=== PATIENT | male | born 1965 | race Caucasian/White ===

== ENCOUNTER → 2019-10-17 08:18 | Outpatient (CLI) | payer BC ==
[2014-12-18 07:36] VITALS: BMI 30.8
[~2019-10-17 08:18] MED LIST: BAYER CHEWABLE81 MG PO; PLAVIX75 MG PO; PRINIVIL20 MG PO
== END | disposition home or self-care (01) ==
LOC: D.HCCARDIO 08:18
PROVIDERS: ATTEND Internal Medicine Cardiovascular Disease
DX: I25.10 Atherosclerotic heart disease of native coronary artery without angina pectoris (principal)

== ENCOUNTER 2019-10-31 08:04 | Day surgery (SDC) | payer BC ==
[~2019-10-31] VITALS: Ht 165.1 cm; Wt 83.5 kg
--- NOTE | ~2019-10-31 | HEMODYNAMI ---
PATIENT:ABDI LINDA MEDICAL RECORD: [id number] : 61 LOCATION:DCodiCAT ADMISSION DATE: 10/31/19 Generatedon:10/31/201910:54 Patient name: ABDI LINDA Patient #: [id number] : 1965 Date of study: 10/31/2019 Page: Of Hemodynamic Procedure Report Patient Data Patient Demographics Procedure consent was obtained First Name: ABDI Gender: Male Last Name: MADDI : 1965 Middle Initial: JM Age: 54 year(s) Patient #: [id number] Race: SSN: [id number] Additional ID: [id number] Contact details Address: [address] [place] [address] State: [place] City: [facility] Zip code: [address] Past Medical History Allergies Allergen Reaction Date Comments Reported Other allergy 12/18/2014 Nickel Admission Admission Data Admission Date: 10/31/2019 Admission Time: 8:04 Arrival Date: 10/31/2019 Arrival Time: 0:00 Admit Source: Other Height (in.): 64.96 BSA: 1.9 (m2) Height (cm.): 165 BMI: 30.49 (kg/m2) Weight (lbs.): 182.98 Weight (kg.): 83 Lab Results Lab Result Date: 10/31/2019 Lab Result Time: 0:00 Biochemistry Name Units Result Min Max BUN mg/dl 18 --(---*)-- 7 18 Creatinine mg/dl 0.9 --(-*--)-- 0.6 1.3 eGFR ml/min 90 --(*---)-- 90 120 NONAFRICAN CBC Name Units Result Min Max Hemoglobin g/dl 15.3 --(-*--)-- 13.5 17.5 Procedure Procedure Types Cath Procedure Diagnostic Procedure LHC LHC w/Coronaries Procedure Description Procedure Date Procedure Date: 10/31/2019 Procedure Start Time: 10:44 Procedure End Time: 10:52 Procedure Staff Name Function Frandy Ibanez MD Performing Physician Domonique Noble RT Reliability Manager Siobhan Carter RT Monitor Charlene Arce RN Nurse Saida Mixon RT Scrub Procedure Data Cath Procedure Fluoroscopy Diagnostic fluoroscopy Total fluoroscopy Time: 1.1 time: 1.1 min min Diagnostic fluoroscopy Total fluoroscopy dose: 547 dose: 547 mGy mGy Contrast Material Contrast Material Type Amount (ml) Isovue 300 60 Entry Location Entry Primary Successful Side Size Upsize Upsize Entry Closure [place] ccessful Closure Location (Fr) 1 (Fr) 2 (Fr) Remarks Device Remarks Radial Right 6 Fr Mechanical artery Short Compression Estimated blood loss: 10 ml Diagnostic catheters Device Type Used For End Catheter Placement DIAGNOSTIC Leverett 110cm 5 Fr catheter ([id number]) Procedure Complications No complications Procedure Medications Medication Administration Route Dosage 0.9% NaCl I.V. 100 ml/hr Oxygen etCO2 Nasal cannula 2 l/min Lidocaine 2% added to field 20 Heparin Flush Bag added to field 2 bags (1000units/500ml NS) Radial Cocktail added to field 1 syringe (Verapamil 2mg/Nitro 400mcg/Heparin 1500units) Versed I.V. 2 mg Fentanyl I.V. 50 mcg Hemodynamics Rest BSA: 1.9 (m2) HGB: 15.3 (g/dl) O2 Consumption: Estimated: 235.38 (ml/min) O2 Con sumption indexed: Estimated:123.88 (ml/min/m) Heart Rate: 85 (bpm) Pressure Samples Time Site Value (mmHg) Purpose Heart Use Rate(bpm) 10:47 LV 66/14,66 Snapshot 87 10:47 AO 81/60(70) Pullback 80 10:47 LV 76/0,4 Pullback 80 Gradients Valve Time Site 1 Site 2 Mean SEP/DFP Peak To Heart Use (mmHg) (sec/min) Peak Rate (mmHg) (bpm) Aortic 10:47 LV AO 0 7 0 80 76/0,4 81/60(70) Calculations Valve P-P Mean Valve Index Valve Source Name Gradient Area Flow (cm2) Aortic 0 0 0 0 Snapshots Pre Cath Intra NCS Post Cath Vital Signs Time Heart Resp SPO2 etCO2 NIBP (mmHg) Rhythm Pain Sedation Rate (ipm) (%) (mmHg) Status Level (bpm) 10:26:06 72 24 97 35.6 138/90(102) NSR 0 (11) 10(A) , No pain 10:30:20 77 20 96 36.8 125/92(101) NSR 0 (11) 10(A) , No pain 10:34:27 76 18 95 30.8 132/90(101) NSR 0 (11) 10(A) , No pain 10:38:41 80 16 97 39.8 130/83(111) NSR 0 (11) 10(A) , No pain 10:42:53 73 14 98 36.1 119/86(101) NSR 0 (11) 10(A) , No pain 10:47:03 76 14 95 38.3 123/80(89) NSR 0 (11) 10(A) , No pain 10:51:17 75 13 92 38.4 118/79(97) NSR 0 (11) 10(A) , No pain Medications Time Medication Route Dose Verified Delivered Reason Notes E ffectiveness by by 10:26:39 0.9% NaCl I.V. 100 Frandy Watsona used for ml/hr Shamar Claude procedure MD FIGUEROA 10:26:51 Oxygen etCO2 2 l/min Frandy Watsona used for Nasal Shamar Claude procedure cannula RN 10:26:58 Lidocaine 2% added 20ml Frandy Wise for local to vial Shamar Shamar anesthetic field MD VICTORIA 10:27:01 Heparin Flush added 2 bags Frandy Wise used for Bag to Shamar Shamar procedure (1000units/500ml field MD VICTORIA NS) 10:27:06 Radial Cocktail added 1 Frandy Wise used for (Verapamil to syringe Shamar Shamar procedure 2mg/Nitro field MD VICTORIA 400mcg/Heparin 1500units) 10:43:17 Versed I.V. 2 mg Frandy Charlene for ShamarParag Arce sedation RN 10:43:23 Fentanyl I.V. 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 10:24:25 Domonique Noble RT(R) sent for patient. Start room use. 10:24:40 Time tracking: Regular hours (M-F 7:00 - 5:00) 10:24:46 Plan of Care:Hemodynamics will remain stable., Cardiac rhythm will remain stable., Comfort level will be maintained., Respiratory function will remain adequate., Patient/ family verbilizes understanding of procedure., Procedure tolerated without complication., Recovers from procedure without complications.. 10:24:57 Patient received from Pre/Post Procedure Room to CCL 2 Alert and oriented. Tansferred to table in Supine position. 10:25:01 Signed procedure consent form obtained from patient. 10:25:03 Warm blankets applied, and naun hugger turned on for patient comfort. 10:25:03 Correct patient and procedure confirmed by team. 10:25:05 ECG and BP/O2 sat monitors applied to patient. 10:25:06 Vital chart was started 10:25:08 Baseline sample Acquired. 10:25:10 Baseline sample Acquired. 10:25:14 Full Disclosure recording started 10:26:39 0.9% NaCl 100 ml/hr I.V. was administered by Charlene Arce RN; used for procedure; Verbal order read back and verified. 10:26:51 Oxygen 2 l/min etCO2 Nasal cannula was administered by Charlene Arce RN; used for procedure; Verbal order read back and verified. 10:26:58 Lidocaine 2% 20ml vial added to field was administered by Frandy Ibanez MD; for local anesthetic; Verbal order read back and verified. 10:27:01 Heparin Flush Bag (1000units/500ml NS) 2 bags added to field was administered by Frandy Ibanez MD; used for procedure; Verbal order read back and verified. 10:27:06 Radial Cocktail (Verapamil 2mg/Nitro 400mcg/Heparin 1500units) 1 syringe added to field was administered by Frandy Ibanez MD; used for procedure; Verbal order read back and verified. 10:29:20 H&P Date Dictated: 10/17/2019 Within 30 days and on chart., H&P Addendum completed by physician on day of procedure. (MUST COMPLETE FOR ALL OUTPATIENTS). 10:29:22 Pre-procedure instructions explained to patient. 10:29:24 Family in patients room. 10:29:26 Patient NPO since Midnight. 10:29:49 Is the patient allergic to Iodine/contrast media? No. 10::51 Was the patient premedicated? Yes 10::53 Is patient on blood thinner?No 10:29:57 Patient diabetic? No. 10:30:13 Previous problem with sedation/anesthesia? No ? 10:30:19 Snore? No 10:30:23 Sleep apnea? No 10:30:32 Airway obstruction? Yes COPD 10:30:39 Dentures? N/A ? 10:30:43 Patient pain scale 0/10 ?. 10:30:48 IV patent on arrival in left forearm with 0.9% NaCl at [facility]. 10:31:00 Baseline sample Acquired. ::21 Lab Result : BUN 18 mg/dl :: Lab Result : Creatinine 0.9 mg/dl :: Lab Result : eGFR NONAFRICAN 90 ml/min :: Lab Result : Hemoglobin 15.3 g/dl 10:: Lab results completed and on chart. 10:32:35 Stress Test: yes; abnormal inferior,apical 10:32:40 Right Radial & Right Groin area was prepped with chlora-prep and draped in sterile fashion 10:32:42 Alarms reviewed by RCodi Aldana. 10:32:42 Sharps counted by scrub and verified by R.N. 10:40:04 Arrival Date: 10/31/2019 12:00:00 AM 10:40:15 Patient Height : 64.96 inches 10:40:19 Patient Weight : 182.98 lbs 10:40:56 Zero performed for pressure channel P1 10:42:26 Physician arrived 10:42:27 --------ALL STOP TIME OUT------ 10:42:28 Final Timeout: patient, procedure, and site verified with staff and physician. All members of the team are in agreement. 10:42:32 Right Radial & Right Groin site verified by team. 10:42:36 Fire Safety Assessment: A--An alcohol-based skin anteseptic being used preoperatively., C--Open oxygen or nitrous oxide is being used., D--An ESU, laser, or fiber-optic light is being used. 10:42:40 Physical assessment completed. ASA score P 2 - A patient with mild systemic disease as per Frandy Ibanez MD. 10:42:47 1) 90+ Normal kidney functon but urine findings or structural abnormalities or genetic trait point to kidney disease. 10:42:51 Maximum allowable contrast dose (3.7 X eGFR X 0.75)249 ml. 10:42:56 Sedation plan: IV Moderate Sedation Medication:Versed, Fentanyl 10:43:03 Use device set Radial Dx or PCI 10:43:04 ACIST Syringe (73057) opened to sterile field. 10:43:04 Medline Cath Pack ([id number]) opened to sterile field. 10:43:05 Bag Decanter (2002S) opened to sterile field. 10:43:05 ACIST Hand Control (60720) opened to sterile field. 10:43:05 ACIST Manifold (24287) opened to sterile field. 10:43:06 Tegaderm 4 x 4 (1626W) opened to sterile field. 10:43:07 MBrace Wrist Support ([id number]) opened to sterile field. 10:43:10 EMERALD Guide Wire (492-138) opened to sterile field. 10:43:10 SHEATH 6FR RAIN ([id number]) opened to sterile field. 10:43:15 Procedure started. 10:43:17 Versed 2 mg I.V. was administered by Charlene Arce RN; for sedation; Verbal order read back and verified. 10:43:23 Fentanyl 50 mcg I.V. was administered by Charlene Arce RN; for sedation; Verbal order read back and verified. 10:44:34 Local anesthetic to right radial artery with Lidocaine 2% by Frandy Ibanez MD.INITIAL ACCESS ONLY 10:45:51 A 6 Fr Short sheath was inserted into the Right Radial artery 10:46:02 A DIAGNOSTIC Leverett 110cm 5 Fr catheter ([id number]) was advanced over the wire and used for . 10:47:25 LV angiography performed. 10:47:44 EF : 55 % 10:48:31 LCA angiography performed. 10:49:19 RCA angiography performed. 10:50:20 Catheter removed. 10:50:29 Sheath removed intact; hemostasis achieved with Mechanical Compression to the Right Radial artery. 10:50:35 Procedure ended.(Physican Out) 10:51:11 Fluoroscopy time 01.10 minutes. 10:51:15 Fluoroscopy dose: 547 mGy 10:51:15 Flurop Dose total: 547 10:51:20 Dose Area Product 20526 mGy/cm. 10:51:24 Contrast amount:Isovue 300 60ml. 10:51:26 Maximum allowable dose exceeded? No. 10:51:27 Sharps counted by scrub and verified by R.N. 10:51:28 Insertion/operative site no bleeding no hematoma. 10:51:53 Post right radial artery:stable 10:51:55 Post Procedure Pulses reassessed and unchanged 10:52:00 Post-procedure physical assessment completed. ASA score P 2 - A patient with mild systemic disease as per Fradny Ibanez MD. 10:52:02 Post procedure rhythm: sinus rhythm 10:52:06 Estimated blood loss: 10 ml 10:52:08 Post procedure instruction explained to patient.Patient verbalizes understanding. 10:52:19 Procedure and supply charges have been captured, reviewed, submitted and are correct. 10:52:39 Procedure Complication : No complications 10:52:41 Vital chart was stopped 10:52:46 [facility] Findings: mild to moderate CAD (<70%) 10:52:50 Operative report dictated upon procedure completion. 10:52:51 See physician's report for complete and final results. 10:52:52 Report given to Pre/Post Procedure Room. 10:52:54 Patient transfered to Pre/Post Procedure Room with Stretcher. 10:52:56 Procedure ended. 10:52:56 Full Disclosure recording stopped Device Usage Item Name Manufacture Quantity Catalog Hospital Part Current Minima l Lot# / Number Charge Number Stock Stock Serial# Code ACIST Acist 1 04913 [id number] 389199 [id number] 20 Syringe Medical (56371) Systems Inc Medline Medline 1 [id number] 99462 003964 5 Cath Pack ([id number]) Bag Microtek 1 158979 94820 939160 5 Decanter Medical Inc. () ACIST Hand Acist 1 14094 178609 031500 441883 5 Control Medical (14687) Systems Inc ACIST Acist 1 40016 503297 352643 275206 5 Manifold Medical (77933) Systems Inc Tegaderm 4 3M 1 1626W 771348 755615 725762 5 x 4 (1626W) MBrace Advanced 1 [id number] 287873 50147 508995 5 Wrist Vascular Support Dynamics ([id number]) [facility] 1 502-455 889063 753718 964290 5 Guide Wire [facility] (502-455) SHEATH 6FR Cardinal 1 [id number] 824944 2740242 695844 5 [facility] (6248776) DIAGNOSTIC Terumo 1 83-4578 917924 387821 621180 5 Leverett 110cm 5 Fr catheter (863700) Signature Audit Floral Stage Time Signature Unsigned Intra-Procedure 10/31/2019 Siobhan Carter 10:53:21 AM RT(R); Charlene Arce RN; Frandy Ibanez MD Signatures Performing Physician : Signature : Frandy Ibanez MD Date : Time : Monitor : Siobhan Carter Signature : RT Date : Time : Nurse : Charlene Arce RN Signature : Date : Time : [address] [place] [address]
[2019-10-31] MEDS ORDERED: ISOSORBIDE MONO30 M1 PO (08:47)
[2019-10-31] MEDS ORDERED: PROTONIX40 MG PO (08:47)
[2019-10-31] MEDS ORDERED: NITROQUICK0.4 MG SL (08:48)
[2019-10-31 08:54] VITALS: BP 142/75; Ht 165.1 cm; Wt 83.5 kg
[2019-10-31 09:21] LABS: BASOPHILS 0.3 % (0-2); HEMATOCRIT 45.3 % (42.0-54.0); HEMOGLOBIN 15.3 g/dL (13.5-17.5); IMMATURE GRANULOCYTES 0.3 % (0-5); LYMPHOCYTES 34.5 % (15-50); MCH 31.9 pg (26.0-34.0); MCHC 33.8 g/dL (31.0-37.0); MCV 94.4 fL (80.0-100.0); MEAN PLATELET VOLUME 8.9 fL (7.4-10.4); NEUTROPHILS 54.9 % (40-80); PLATELET COUNT 275 10x3/uL (130-400); RDW 13.7 % (11.5-14.5); WBC 6.6 10x3/uL (4.8-10.8)
[2019-10-31 09:32] LABS: ALT (SGPT) 42 U/L (10-68); CALC OSMOLALITY 282 mosm/kg (275-300); CALCIUM 10.1 mg/dL (8.5-10.1); CARBON DIOXIDE 29.9 mmol/L (21.0-32.0); CHLORIDE - SERUM 108 mmol/L (98-107); CHOL - HDL RATIO 4.8 ratio (2.3-4.9); CHOLESTEROL, TOTAL 188 mg/dL (0-200); CREATININE - SERUM 0.9 mg/dL (0.6-1.3); GLUCOSE 106 mg/dL (74-106); HDL CHOLESTEROL 39 mg/dL (32-96); LDL CHOLESTEROL 140 mg/dL (0-100); LDL-HDL RATIO 3.6 ratio (1.5-3.5); POTASSIUM - SERUM 4.6 mmol/L (3.5-5.1); SODIUM 141 mmol/L (136-145); TRIGLYCERIDE 49 mg/dL (30-200); UREA NITROGEN 18 mg/dL (7-18); eGFR NON AFRICAN AMERICAN > 90 mL/min (90-120)
--- NOTE | 2019-10-31 11:10 | NUR ---
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 MONITORS ESTAB, NO FAMILY AT BS. 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
--- NOTE | 2019-10-31 11:15 | NUR ---
R WRIST SITE C/D/I, NO S/S BLEEDING OR SWELLING. R ARM/HAND WARM WITH PALP PULSES. VSS.. PT GIVEN COFFEE AND SANDWICH PER REQUEST. C/L IN REACH.
--- NOTE | 2019-10-31 11:45 | NUR ---
VSS. R WRIST SITE C/D/I, NO S/S BLEEDING OR SWELLING. HAND WARM WITH PALP PULSES. ALARMS ON AND C/L IN REACH.
--- NOTE | 2019-10-31 12:00 | NUR ---
R WRIST SITE C/D/I. NO S/S BLEEDING. 3CC AIR REMOVED FROM Z BAND - WILL CONT CLOSE MONITORING.
--- NOTE | 2019-10-31 12:30 | NUR ---
ALL AIR REMOVED FROM Z BAND, NO S/S BLEEDING. WILL CONT CLOSE MONITORING.
--- NOTE | 2019-10-31 12:41 | NUR ---
R WRIST SITE C/D/I. Z BAND OFF AND TEGADERM DSG APPLIED. PIV D/C'D INTACT, DSG APPLIED.. PT ALLOWED UP TO GET DRESSED.
--- NOTE | 2019-10-31 12:50 | NUR ---
ALL DISCHARGE TEACHING INCLUDING RESTRICTIONS, MEDS AND F/U APPT REVIEWED WITH PT, NO QUESTIONS AT THIS TIME. PT UP TO BR INDEPENDENTLY.
--- NOTE | 2019-10-31 13:00 | NUR ---
PT D/C'D TO PRIVATE VEHICLE WITH , PT HAS ALL PAPERWORK AND BELONGINGS.
--- NOTE | 2019-11-02 11:30 | OP ---
PATIENT NAME: ABDI LINDA MEDICAL RECORD: [id number] :61 LOCATION:D.CAT ADMISSION DATE: SURGEON: NEEMA BIGGS MD DATE OF OPERATION: 10/31/2019 PROCEDURE: Left heart catheterization, selective coronary angiography, right radial approach. CATHETERS: Radial sheath, [place] catheter. The procedure was well tolerated. The patient was returned to the damon. Sheath was removed. ExoSeal device placed. FINDINGS: Left ventriculography in 30-degree GAONA view: Normal wall motion and normal systolic function. CORONARY ANATOMY: LEFT MAIN: Left main is free of disease. LAD: Free of disease. Previously placed stent in the diagonal, which is widely patent and without evidence of restenosis. 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 RIGHT CORONARY ARTERY: Large, dominant right with widely patent stents. No progression of [place] disease. IMPRESSION: Patent stents. No progression of [place] disease. LV function remains normal. TRANSINT:[id number] Voice Confirmation ID: [id number] DOCUMENT ID: [id number] NEEMA BIGGS MD at 1130 CC: [id number] DICTATION DATE: 10/31/19 1058 LINE FISHER: 10/31/19 2246 [facility] 10/31/19 [id number] [place] [address]
== END 2019-10-31 13:00 | disposition home or self-care (01) ==
LOC: D.CATH 08:04
PROVIDERS: ATTEND Internal Medicine Interventional Cardiology
DX: I10 Essential (primary) hypertension (principal); R07.9 Chest pain, unspecified; I25.10 Atherosclerotic heart disease of native coronary artery without angina pectoris; F17.200 Nicotine dependence, unspecified, uncomplicated; E78.5 Hyperlipidemia, unspecified